=== PATIENT | male | born 1935 ===

== ENCOUNTER 2018-09-27 12:28 | Inpatient (IN) | payer OTHER ==
[2018-09-27 13:17] LABS: BASO # 0.1 K/uL (0.0-0.2); BASO % 0.8 % (0.0-2.0); EOS # 0.5 K/uL (0.0-0.7); HEMOGLOBIN 10.7 g/dL (12.0-18.0); LYMPH # 3.3 K/uL (1.0-4.3); LYMPH % 19.2 % (20.0-40.0); MEAN CELL VOLUME 88.2 fl (80.0-94.0); MEAN CORPUSCULAR HEMOGLOBIN 29.4 pg (27.0-31.0); MEAN CORPUSCULAR HGB CONC 33.3 g/dL (33.0-37.0); MEAN PLATELET VOLUME 7.1 fl (7.2-11.7); MONO # 1.7 K/uL (0.0-0.8); NEUT # 11.5 K/uL (1.8-7.0); RBC 3.62 Mil/uL (4.40-5.90); RED CELL DISTRIBUTION WIDTH 14.7 % (11.5-14.5); WHITE BLOOD COUNT 17.1 K/uL (4.8-10.8)
[2018-09-27 13:23] LABS: VENOUS BLOOD GAS BASE EXCESS 0.1 mmol/L (0.0-2.0); VENOUS BLOOD GAS PCO2 39 mmHg (40-60); VENOUS BLOOD GAS PO2 29 mm/Hg (30-55); VENOUS BLOOD PH 7.41 (7.32-7.43)
[2018-09-27 13:23] LABS: INR 1.1; PROTHROMBIN TIME 12.8 Seconds (9.8-13.1)
--- NOTE | 2018-09-27 13:25 | ED PDOC ---
HPI: CCC, URI, Sore Throat Time Seen by Provider: 09/27/18 12:53 Chief Complaint (Nursing): Cough, Cold, Congestion Chief Complaint (Provider): Cough History Per: Patient, Family (daughter), [employer] ([id number]) History/Exam Limitations: no limitations Onset/Duration Of Symptoms: Other (xmany years) Current Symptoms Are (Timing): Still Present Associated Symptoms: Sputum Additional Complaint(s): 83 year old male presents to the ED with daughter complaining of a cough with green sputum for many years which has been worsening. Patient recently came from [place]. Patient also complains of chest pain with cough and shortness of breath. Denies fever. PMD: none Past Medical History Reviewed: Historical Data, Nursing Documentation, Vital Signs Vital Signs: Last Vital Signs Temp 99 F 09/27/18 12:39 Pulse 104 H 09/27/18 12:39 Resp 25 H 09/27/18 12:39 BP 137/61 09/27/18 12:39 Pulse Ox 94 L 09/27/18 12:39 - Medical History PMH: Asthma, Diabetes, HTN, Hypercholesterolemia - Surgical History Surgical History: No Surg Hx - Family History Family History: States: Unknown Family Hx - Social History Current smoker - smoking cessation education provided: No Ex-Smoker (has not smoked in the last 12 months): Yes - Allergies Allergies/Adverse Reactions: Allergies Allergy/AdvReac Type Severity Reaction Status Date / Time No Known Allergies Allergy Verified 09/27/18 12:39 Review of Systems ROS Statement: Except As Marked, All Systems Reviewed And Found Negative Constitutional: Negative for: Fever Cardiovascular: Positive for: Chest Pain Respiratory: Positive for: Cough, Shortness of Breath, Sputum (green) Physical Exam - Reviewed Nursing Documentation Reviewed: Yes Vital Signs Reviewed: Yes - Physical Exam Appears: Positive for: Non-toxic, No Acute Distress Head Exam: Positive for: ATRAUMATIC, NORMOCEPHALIC Skin: Positive for: Normal Color, Warm, Dry Eye Exam: Positive for: Normal appearance Neck: Positive for: Normal, Painless ROM Cardiovascular/Chest: Positive for: Regular Rate, Rhythm Respiratory: Positive for: Crackles (bibasilar ). Negative for: Respiratory Distress Extremity: Positive for: Normal ROM Neurologic/Psych: Positive for: Alert, Other (speaking full sentences). Negative for: Motor/Sensory Deficits - Laboratory Results Result Diagrams: 09/27/18 13:10 09/27/18 13:10 - ECG Interpretation Of ECG: ST @ 105, TWI lateral leads (no old EKG to compare). O2 Sat by Pulse Oximetry: 94 (RA) Pulse Ox Interpretation: Normal Medical Decision Making Medical Decision Making: Initial Impression: Acute on chronic cough and chest pain Initial Plan: --VBG shock panel --ECG --ProBNP stat --CMP --Troponin stat --ED urine dipstick --CBC --PTT --Prothrombin time --Chest X-ray --Glucose stat --Blood culture --Urinalysis Accession No. : [id number] Patient Name / ID : KERA QURESHI / [id number] Exam Date : 09/27/2018 12:56:07 ( Approved ) Study Comment : Sex / Age : M / 83Y Creator : Jennifer Persaud MD Dictator : Jennifer Persaud MD [place]ner : Desizing Machine Operator Head End : Jennifer Persaud MD Approver2 : Report Date : 09/27/2018 13:25:31 My Comment : Date of service: 09/27/2018 HISTORY: Cough COMPARISON: No prior. FINDINGS: LUNGS: The lungs are well inflated. There is moderate pulmonary venous congestion. There is confluent airspace disease in the lower lobes. There is a calcified right hilar lymph node. PLEURA: No pleural effusions or pneumothorax. CARDIOVASCULAR: The heart is normal in size. Atherosclerotic aortic arch calcifications are present. OSSEOUS STRUCTURES: Within normal limits for the patient's age. VISUALIZED UPPER ABDOMEN: Normal. OTHER FINDINGS: None. IMPRESSION: Confluent airspace disease in the lower lobes could represent subsegmental atelectasis however superimposed pneumonia cannot be excluded. ------- Scribe Attestation: Documented by Francisco Reveles acting as a scribe for Roxy Sandoval MD. Provider Scribe Attestation: All medical record entries made by the Scribe were at my direction and personally dictated by me. I have reviewed the chart and agree that the record accurately reflects my personal performance of the history, physical exam, medical decision making, and the department course for this patient. I have also personally directed, reviewed, and agree with the discharge instructions and disposition. Disposition - Clinical Impression Clinical Impression: Pneumonia, Sepsis, Chest pain - Patient ED Disposition Is Patient to be Admitted: Yes - Disposition Disposition Time: 15:22 Condition: STABLE Forms: [employer] (Taiwanese) - Pt Status Changed To: Hospital Disposition Of: Inpatient - Admit Certification Admit to Inpatient:: After my assessment, the patient will require hospitalization for at least two midnights. This is because of the severity of symptoms shown, intensity of services needed, and/or the medical risk in this patient being treated as an outpatient. - POA Present On Arrival: None
[2018-09-27 13:26] LABS: PARTIAL THROMBOPLASTIN TIME 32.8 Seconds (25.6-37.1)
--- NOTE | 2018-09-27 13:29 | RAD ---
Date of service: 09/27/2018 HISTORY: Cough COMPARISON: No prior. FINDINGS: LUNGS: The lungs are well inflated. There is moderate pulmonary venous congestion. There is confluent airspace disease in the lower lobes. There is a calcified right hilar lymph node. PLEURA: No pleural effusions or pneumothorax. CARDIOVASCULAR: The heart is normal in size. Atherosclerotic aortic arch calcifications are present. OSSEOUS STRUCTURES: Within normal limits for the patient's age. VISUALIZED UPPER ABDOMEN: Normal. OTHER FINDINGS: None. IMPRESSION: Confluent airspace disease in the lower lobes could represent subsegmental atelectasis however superimposed pneumonia cannot be excluded.
[2018-09-27 13:34] LABS: ALB/GLOB RATIO 0.9 (1.0-2.1); ALBUMIN 3.9 g/dL (3.5-5.0); ALT/SGPT 18 U/L (21-72); AST/SGOT 33 U/L (17-59); BLOOD UREA NITROGEN 11 mg/dl (9-20); CALCIUM 9.7 mg/dL (8.4-10.2); GFR NON-AFRICAN AMERICAN > 60
[2018-09-27 13:41] LABS: B-TYPE NATRIURETIC PEPTIDE 677 pg/ml (0-900)
[2018-09-27] MEDS ORDERED: Azithromycin 500 MG in Sodium Chloride 0.9% 250 ML IV STA (13:50)
[2018-09-27] MEDS ORDERED: cefTRIAXone (Rocephin) 1 gm Inj ONE (14:02)
[2018-09-27 15:04] LABS: URINE BACTERIA RARE (<OCC); URINE BILIRUBIN NEGATIVE (NEGATIVE); URINE BLOOD NEGATIVE (NEGATIVE); URINE CLARITY SLIGHTY-CLOUDY (Clear); URINE COLOR YELLOW (YELLOW); URINE GLUCOSE (UA) NEG (NEGATIVE); URINE LEUKOCYTE ESTERASE NEG Leu/uL (Negative); URINE PROTEIN 100 mg/dL (NEGATIVE); URINE UROBILINOGEN 0.2-1.0 mg/dL (0.2-1.0)
[2018-09-27] MEDS ORDERED: Enoxaparin 60 mg Syringe SC STA (15:25)
[2018-09-27] MEDS ORDERED: Glucagon Recombinant 1 mg Inj IM PRN (17:56)
[2018-09-27] MEDS ORDERED: Dextrose 50% SYRINGE Inj (50 ml) IV PRN (17:56)
--- NOTE | 2018-09-27 18:56 | CARD ---
APPROVED REPORT Date of service: 09/27/2018 EKG Measurement Heart [id number] <Conclusion> Sinus tachycardia ST & T wave abnormality, consider lateral ischemia Abnormal ECG
[2018-09-27] MEDS ORDERED: Albuterol-Ipratrop 3 mg / 0.5 (3 ml) UD INH PRN (19:07)
[2018-09-27] MEDS ORDERED: [UNRECOGNIZED DRUG - OTHER] PO SCH (21:00)
[2018-09-28] MEDS ORDERED: Pneumococcal 23-Valent Vaccine IM ONE (06:00)
[2018-09-28 06:26] LABS: BASO # 0.1 K/uL (0.0-0.2); BASO % 1.1 % (0.0-2.0); EOS # 0.6 K/uL (0.0-0.7); EOS % 5.2 % (0.0-4.0); HEMOGLOBIN 9.4 g/dL (12.0-18.0); LYMPH # 2.5 K/uL (1.0-4.3); LYMPH % 22.5 % (20.0-40.0); MEAN CELL VOLUME 87.3 fl (80.0-94.0); MEAN CORPUSCULAR HEMOGLOBIN 28.9 pg (27.0-31.0); MEAN CORPUSCULAR HGB CONC 33.1 g/dL (33.0-37.0); MEAN PLATELET VOLUME 7.3 fl (7.2-11.7); MONO # 1.3 K/uL (0.0-0.8); MONO % 11.6 % (0.0-10.0); NEUT # 6.7 K/uL (1.8-7.0); NEUT % 59.6 % (50.0-75.0); RBC 3.27 Mil/uL (4.40-5.90); RED CELL DISTRIBUTION WIDTH 14.8 % (11.5-14.5); WHITE BLOOD COUNT 11.3 K/uL (4.8-10.8)
[2018-09-28 06:52] LABS: ALB/GLOB RATIO 0.9 (1.0-2.1); ALBUMIN 3.5 g/dL (3.5-5.0); ALT/SGPT 29 U/L (21-72); AST/SGOT 31 U/L (17-59); BLOOD UREA NITROGEN 12 mg/dl (9-20); CALCIUM 9.2 mg/dL (8.4-10.2); GFR NON-AFRICAN AMERICAN 58
[2018-09-28] MEDS ORDERED: Sodium Chloride 3% for Inhalation 4 ML VIAL.NEB IH PRN (08:38)
--- NOTE | 2018-09-28 08:42 | CP.PCM.HP ---
<Zohra Herrmann - Last Filed: 09/28/18 08:32> History of Present Illness - History of Present Illness History of Present Illness: 83 yo M with hx diabetes, asthma, hypertension, arthritis, admitted due to sepsis secondary to pneumonia. Pt presented to ED, brought by his daughter, who reports that he has been having progressively worsening cough for the past few months, worse yesterday, which prompted her to bring him in. Pt reports that he gets short of breath when he is coughing, and cough if productive of white- yellow sputum, without blood. He reports that he is unable to walk much without getting short of breath and coughing. Denies chest pain, fevers, chills. Except as above; 12 point ROS neg. PMD: Dr. 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 Denies heavy alcohol intake or drug use. Worked as [employer]. Fam hx: noncontributory NKDA Meds as per med rec In ED Afebrile; BP normotensive, tachycardic WBC 17k, Hgb 10.7 CXR: Confluent airspace disease in the lower lobes could represent subsegmental atelectasis however superimposed pneumonia cannot be excluded. proBNP [address] Feldman this am; reports continued cough; no acute events overnight. Present on Admission - Present on Admission Any Indicators Present on Admission: No Review of Systems - Review of Systems Review of Systems: as per hpi Past Patient History - Past Medical History & Family History Past Medical History?: Yes - Past Social History Smoking Status: Former Smoker - CARDIAC Hx Cardiac Disorders: Yes Hx Hypercholesterolemia: Yes Hx Hypertension: Yes - PULMONARY Hx Respiratory Disorders: Yes Hx Asthma: Yes - NEUROLOGICAL Hx Neurological Disorder: No - HEENT Hx HEENT Problems: No - RENAL Hx Chronic Kidney Disease: No - ENDOCRINE/METABOLIC Hx Endocrine Disorders: No - HEMATOLOGICAL/ONCOLOGICAL Hx Blood Disorders: No - INTEGUMENTARY Hx Dermatological Problems: No - MUSCULOSKELETAL/RHEUMATOLOGICAL Hx Musculoskeletal Disorders: No - GASTROINTESTINAL Hx Gastrointestinal Disorders: No - GENITOURINARY/GYNECOLOGICAL Hx Genitourinary Disorders: No - PSYCHIATRIC Hx Psychophysiologic Disorder: No Hx Substance Use: No - SURGICAL HISTORY Hx Surgeries: No - ANESTHESIA Hx Anesthesia: No Hx Anesthesia Reactions: No Hx Malignant Hyperthermia: No Has any member of the family had a problem w/ anesthesia?: No Meds Allergies/Adverse Reactions: Allergies Allergy/AdvReac Type Severity Reaction Status Date / Time No Known Allergies Allergy Verified 09/27/18 12:39 Physical Exam - Constitutional Appears: Non-toxic, No Acute Distress - Head Exam Head Exam: NORMAL INSPECTION - Eye Exam Eye Exam: Normal appearance, PERRL - ENT Exam ENT Exam: Mucous Membranes Moist - Respiratory Exam Respiratory Exam: NORMAL BREATHING PATTERN. absent: Accessory Muscle Use, Respiratory Distress Additional comments: bibasilar crackles good air movement bilaterally - Cardiovascular Exam Cardiovascular Exam: REGULAR RHYTHM, +S1, +S2 - GI/Abdominal Exam GI & Abdominal Exam: Normal Bowel Sounds, Soft. absent: Tenderness - Extremities Exam Extremities exam: Positive for: normal inspection. Negative for: calf tenderness - Neurological Exam Neurological exam: Alert Additional comments: oriented - Psychiatric Exam Psychiatric exam: Normal Affect, Normal Mood - Skin Skin Exam: Dry, Warm Results - Vital Signs Recent Vital Signs: Last Vital Signs Temp 98.3 F 09/28/18 08:15 Pulse 96 H 09/28/18 08:15 Resp 20 09/28/18 08:15 BP 140/54 L 09/28/18 08:15 Pulse Ox 98 09/28/18 08:15 - Labs Result Diagrams: 09/28/18 04:05 09/28/18 04:05 Labs: Laboratory Results - last 24 hr 09/27/18 09/27/18 09/27/18 13:07 13:10 13:10 WBC 17.1 H RBC 3.62 L Hgb 10.7 L Hct 32.0 L MCV 88.2 MCH 29.4 MCHC 33.3 RDW 14.7 H Plt Count 545 H MPV 7.1 L Neut % (Auto) 67.0 Lymph % (Auto) 19.2 L [place] % (Auto) 10.0 Eos % (Auto) 3.0 Baso % (Auto) 0.8 Neut # (Auto) 11.5 H Lymph # (Auto) 3.3 Calloway # (Auto) 1.7 H Eos # (Auto) 0.5 Baso # (Auto) 0.1 PT INR APTT pO2 29 L VBG pH 7.41 VBG pCO2 39 L VBG HCO3 24.1 VBG Total CO2 25.9 VBG O2 Sat (Calc) 56.9 VBG Base Excess 0.1 VBG Potassium 4.0 Sodium 134.0 136 Chloride 104.0 101 Glucose 206 H Lactate 1.4 FiO2 21.0 Potassium 4.2 Carbon Dioxide 22 Anion Gap 17 BUN 11 Creatinine 1.1 Est GFR ( Amer) > 60 Est GFR (Non-Af Amer) > 60 POC Glucose (mg/dL) Random Glucose 193 H Calcium 9.7 Total Bilirubin 0.3 AST 33 ALT 18 L Alkaline Phosphatase 88 Troponin I < 0.0120 NT-Pro-B Natriuret Pep 677 Total Protein 8.2 Albumin 3.9 Globulin 4.3 H Albumin/Globulin Ratio 0.9 L Venous Blood Potassium 4.0 Urine Color Urine Clarity Urine pH Ur Specific [place] Urine Protein Urine Glucose (UA) Urine Ketones Urine Blood Urine Nitrate Urine Bilirubin Urine Urobilinogen Ur Leukocyte Esterase Urine RBC (Auto) Urine Microscopic WBC Urine Bacteria Hyaline Casts 09/27/18 09/27/18 09/27/18 13:10 13:15 14:54 WBC RBC Hgb Hct MCV MCH MCHC RDW Plt Count MPV Neut % (Auto) Lymph % (Auto) [place] % (Auto) Eos % (Auto) Baso % (Auto) Neut # (Auto) Lymph # (Auto) [place] # (Auto) Eos # (Auto) Baso # (Auto) PT 12.8 INR 1.1 APTT 32.8 pO2 VBG pH VBG pCO2 VBG HCO3 VBG Total CO2 VBG O2 Sat (Calc) VBG Base Excess VBG Potassium Sodium Chloride Glucose Lactate FiO2 Potassium Carbon Dioxide Anion Gap BUN Creatinine Est GFR ( Amer) Est GFR (Non-Af Amer) POC Glucose (mg/dL) 206 H Random Glucose Calcium Total Bilirubin AST ALT Alkaline Phosphatase Troponin I NT-Pro-B Natriuret Pep Total Protein Albumin Globulin Albumin/Globulin Ratio Venous Blood Potassium Urine Color Yellow Urine Clarity Slighty-cloudy Urine pH 5.0 Ur Specific [place] 1.019 Urine Protein 100 Urine Glucose (UA) Neg Urine Ketones Negative Urine Blood Negative Urine Nitrate Negative Urine Bilirubin Negative Urine Urobilinogen 0.2-1.0 Ur Leukocyte Esterase Neg Urine RBC (Auto) 1 Urine Microscopic WBC 1 Urine Bacteria Rare Hyaline Casts 3-5 H 09/27/18 09/27/18 09/28/18 20:04 21:23 04:05 WBC 11.3 H RBC 3.27 L Hgb 9.4 L Hct 28.6 L MCV 87.3 MCH 28.9 MCHC 33.1 RDW 14.8 H Plt Count 510 H MPV 7.3 Neut % (Auto) 59.6 Lymph % (Auto) 22.5 Calloway % (Auto) 11.6 H Eos % (Auto) 5.2 H Baso % (Auto) 1.1 Neut # (Auto) 6.7 Lymph # (Auto) 2.5 Callow[place] # (Auto) 1.3 H Eos # (Auto) 0.6 Baso # (Auto) 0.1 PT INR APTT pO2 VBG pH VBG pCO2 VBG HCO3 VBG Total CO2 VBG O2 Sat (Calc) VBG Base Excess VBG Potassium Sodium Chloride Glucose Lactate FiO2 Potassium Carbon Dioxide Anion Gap BUN Creatinine Est GFR ( Amer) Est GFR (Non-Af Amer) POC Glucose (mg/dL) 173 H Random Glucose Calcium Total Bilirubin AST ALT Alkaline Phosphatase Troponin I < 0.0120 NT-Pro-B Natriuret Pep Total Protein Albumin Globulin Albumin/Globulin Ratio Venous Blood Potassium Urine Color Urine Clarity Urine pH Ur Specific [place] Urine Protein Urine Glucose (UA) Urine Ketones Urine Blood Urine Nitrate Urine Bilirubin Urine Urobilinogen Ur Leukocyte Esterase Urine RBC (Auto) Urine Microscopic WBC Urine Bacteria Hyaline Casts 09/28/18 09/28/18 04:05 05:21 WBC RBC Hgb Hct MCV MCH MCHC RDW Plt Count MPV Neut % (Auto) Lymph % (Auto) [place] % (Auto) Eos % (Auto) Baso % (Auto) Neut # (Auto) Lymph # (Auto) [place] # (Auto) Eos # (Auto) Baso # (Auto) PT INR APTT pO2 VBG pH VBG pCO2 VBG HCO3 VBG Total CO2 VBG O2 Sat (Calc) VBG Base Excess VBG Potassium Sodium 136 Chloride 102 Glucose Lactate FiO2 Potassium 3.9 Carbon Dioxide 23 Anion Gap 15 BUN 12 Creatinine 1.2 Est GFR ( Amer) > 60 Est GFR (Non-Af Amer) 58 POC Glucose (mg/dL) 115 H Random Glucose 118 H Calcium 9.2 Total Bilirubin 0.2 AST 31 ALT 29 Alkaline Phosphatase 76 Troponin I < 0.0120 NT-Pro-B Natriuret Pep Total Protein 7.4 Albumin 3.5 Globulin 3.9 Albumin/Globulin Ratio 0.9 L Venous Blood Potassium Urine Color Urine Clarity Urine pH Ur Specific [place] Urine Protein Urine Glucose (UA) Urine Ketones Urine Blood Urine Nitrate Urine Bilirubin Urine Urobilinogen Ur Leukocyte Esterase Urine RBC (Auto) Urine Microscopic WBC Urine Bacteria Hyaline Casts Assessment & Plan - Assessment and Plan (Free Text) Assessment: 83 yo M with asthma, diabetes, hypertension, admitted for sepsis secondary to suspected bacterial community acquired pneumonia. Plan: - Admitted to tele, continuous monitoring - Sepsis criteria met on admission (tachycardia, elevated WBC count, suspected source pneumonia seen on admission CXR) - WBC down to 11k from 17k; continue ceftriaxone and azithromycin - Sputum cultures, blood cultures - EKG with T wave inversions, ? lateral ischemia - cardiology consult- Dr. Olivares; no edema and probnp wnl. - Anenia workup - tibc, iron, ferritin, transferrin, Hgb 9-10 - Resume home meds for diabetes, asthma, resume metoprolol; hold lasix for now - Duonebs Q4hrs scheduled - Heart healthy/consistent carb diet - Lovenox SC <Damian Feldman K - Last Filed: 09/28/18 10:34> Results - Vital Signs Recent Vital Signs: Last Vital Signs Temp 98.3 F 09/28/18 08:15 Pulse 96 H 09/28/18 09:11 Resp 20 09/28/18 08:15 BP 150/54 L 09/28/18 09:11 Pulse Ox 98 09/28/18 08:15 - Labs Result Diagrams: 09/28/18 04:05 09/28/18 04:05 Labs: Laboratory Results - last 24 hr 09/27/18 09/27/18 09/27/18 13:07 13:10 13:10 WBC 17.1 H RBC 3.62 L Hgb 10.7 L Hct 32.0 L MCV 88.2 MCH 29.4 MCHC 33.3 RDW 14.7 H Plt Count 545 H MPV 7.1 L Neut % (Auto) 67.0 Lymph % (Auto) 19.2 L Callow[place] % (Auto) 10.0 Eos % (Auto) 3.0 Baso % (Auto) 0.8 Neut # (Auto) 11.5 H Lymph # (Auto) 3.3 [place] # (Auto) 1.7 H Eos # (Auto) 0.5 Baso # (Auto) 0.1 PT INR APTT pO2 29 L VBG pH 7.41 VBG pCO2 39 L VBG HCO3 24.1 VBG Total CO2 25.9 VBG O2 Sat (Calc) 56.9 VBG Base Excess 0.1 VBG Potassium 4.0 Sodium 134.0 136 Chloride 104.0 101 Glucose 206 H Lactate 1.4 FiO2 21.0 Potassium 4.2 Carbon Dioxide 22 Anion Gap 17 BUN 11 Creatinine 1.1 Est GFR ( Amer) > 60 Est GFR (Non-Af Amer) > 60 POC Glucose (mg/dL) Random Glucose 193 H Calcium 9.7 Total Bilirubin 0.3 AST 33 ALT 18 L Alkaline Phosphatase 88 Troponin I < 0.0120 NT-Pro-B Natriuret Pep 677 Total Protein 8.2 Albumin 3.9 Globulin 4.3 H Albumin/Globulin Ratio 0.9 L Venous Blood Potassium 4.0 Urine Color Urine Clarity Urine pH Ur Specific [place] Urine Protein Urine Glucose (UA) Urine Ketones Urine Blood Urine Nitrate Urine Bilirubin Urine Urobilinogen Ur Leukocyte Esterase Urine RBC (Auto) Urine Microscopic WBC Urine Bacteria Hyaline Casts 09/27/18 09/27/18 09/27/18 13:10 13:15 14:54 WBC RBC Hgb Hct MCV MCH MCHC RDW Plt Count MPV Neut % (Auto) Lymph % (Auto) [place] % (Auto) Eos % (Auto) Baso % (Auto) Neut # (Auto) Lymph # (Auto) [place] # (Auto) Eos # (Auto) Baso # (Auto) PT 12.8 INR 1.1 APTT 32.8 pO2 VBG pH VBG pCO2 VBG HCO3 VBG Total CO2 VBG O2 Sat (Calc) VBG Base Excess VBG Potassium Sodium Chloride Glucose Lactate FiO2 Potassium Carbon Dioxide Anion Gap BUN Creatinine Est GFR ( Amer) Est GFR (Non-Af Amer) POC Glucose (mg/dL) 206 H Random Glucose Calcium Total Bilirubin AST ALT Alkaline Phosphatase Troponin I NT-Pro-B Natriuret Pep Total Protein Albumin Globulin Albumin/Globulin Ratio Venous Blood Potassium Urine Color Yellow Urine Clarity Slighty-cloudy Urine pH 5.0 Ur Specific [place] 1.019 Urine Protein 100 Urine Glucose (UA) Neg Urine Ketones Negative Urine Blood Negative Urine Nitrate Negative Urine Bilirubin Negative Urine Urobilinogen 0.2-1.0 Ur Leukocyte Esterase Neg Urine RBC (Auto) 1 Urine Microscopic WBC 1 Urine Bacteria Rare Hyaline Casts 3-5 H 09/27/18 09/27/18 09/28/18 20:04 21:23 04:05 WBC 11.3 H RBC 3.27 L Hgb 9.4 L Hct 28.6 L MCV 87.3 MCH 28.9 MCHC 33.1 RDW 14.8 H Plt Count 510 H MPV 7.3 Neut % (Auto) 59.6 Lymph % (Auto) 22.5 [place]allow[place] % (Auto) 11.6 H Eos % (Auto) 5.2 H Baso % (Auto) 1.1 Neut # (Auto) 6.7 Lymph # (Auto) 2.5 [place] # (Auto) 1.3 H Eos # (Auto) 0.6 Baso # (Auto) 0.1 PT INR APTT pO2 VBG pH VBG pCO2 VBG HCO3 VBG Total CO2 VBG O2 Sat (Calc) VBG Base Excess VBG Potassium Sodium Chloride Glucose Lactate FiO2 Potassium Carbon Dioxide Anion Gap BUN Creatinine Est GFR ( Amer) Est GFR (Non-Af Amer) POC Glucose (mg/dL) 173 H Random Glucose Calcium Total Bilirubin AST ALT Alkaline Phosphatase Troponin I < 0.0120 NT-Pro-B Natriuret Pep Total Protein Albumin Globulin Albumin/Globulin Ratio Venous Blood Potassium Urine Color Urine Clarity Urine pH Ur Specific [place] Urine Protein Urine Glucose (UA) Urine Ketones Urine Blood Urine Nitrate Urine Bilirubin Urine Urobilinogen Ur Leukocyte Esterase Urine RBC (Auto) Urine Microscopic WBC Urine Bacteria Hyaline Casts 09/28/18 09/28/18 04:05 05:21 WBC RBC Hgb Hct MCV MCH MCHC RDW Plt Count MPV Neut % (Auto) Lymph % (Auto) [place] % (Auto) Eos % (Auto) Baso % (Auto) Neut # (Auto) Lymph # (Auto) [place] # (Auto) Eos # (Auto) Baso # (Auto) PT INR APTT pO2 VBG pH VBG pCO2 VBG HCO3 VBG Total CO2 VBG O2 Sat (Calc) VBG Base Excess VBG Potassium Sodium 136 Chloride 102 Glucose Lactate FiO2 Potassium 3.9 Carbon Dioxide 23 Anion Gap 15 BUN 12 Creatinine 1.2 Est GFR ( Amer) > 60 Est GFR (Non-Af Amer) 58 POC Glucose (mg/dL) 115 H Random Glucose 118 H Calcium 9.2 Total Bilirubin 0.2 AST 31 ALT 29 Alkaline Phosphatase 76 Troponin I < 0.0120 NT-Pro-B Natriuret Pep Total Protein 7.4 Albumin 3.5 Globulin 3.9 Albumin/Globulin Ratio 0.9 L Venous Blood Potassium Urine Color Urine Clarity Urine pH Ur Specific [place] Urine Protein Urine Glucose (UA) Urine Ketones Urine Blood Urine Nitrate Urine Bilirubin Urine Urobilinogen Ur Leukocyte Esterase Urine RBC (Auto) Urine Microscopic WBC Urine Bacteria Hyaline Casts Assessment & Plan - Assessment and Plan (Free Text) Assessment: Patient was personally seen and examined by me in rounds with residents. Available labs and diagnostic data reviewed. Case, Patient's condition and management plan discussed with residents in rounds. Agree with resident's progress note. Plan: As ordered.
[2018-09-28] MEDS ORDERED: Patient's Own Med (Multivitamin [Multi-Vitamin Daily] 1 TAB) PO SCH (09:00)
[2018-09-28] MEDS: Insulin Lispro (humaLOG) 100 Units/ml Inj SC SCH ×3 (09:05→17:30)
[2018-09-28] MEDS: Enoxaparin 40 mg Syringe SC SCH (09:07)
[2018-09-28] MEDS: Multivitamin With Minerals Tab PO SCH (09:07)
[2018-09-28] MEDS: Azithromycin 500 MG in Sodium Chloride 0.9% 250 ML IVPB SCH (09:12)
[2018-09-28 11:12] LABS: TOTAL IRON BINDING CAPACITY 217 ug/dL (250-450)
[2018-09-28 11:50] LABS: IRON 27 ug/dL (49-181)
[2018-09-28 11:51] LABS: % IRON SATURATION 12 % (20-55)
--- NOTE | 2018-09-28 15:38 | CP.PCM.CON ---
History of Present Illness - History of Present Illness History of Present Illness: Consultation for evaluation of chest pain and abnormal EKG / lateral ST depressions HPI: Mr. Callahan is a 83-year-old male past medical history significant for hypertension diabetes who was admitted with complaints of shortness of breath and cough patient apparently was diagnosed a few weeks ago with URI symptoms and was given a dose of antibiotics which did not resolve his symptoms according to the patient's daughter at the bedside he is been having ongoing dyspnea on exertion for a few months prior to this presentation a week before this presentation his cough got worse accompanied with the sputum productive of yellow colored sputum accompanied with mild fevers and chills. He does have severe fatigue and lethargy with minimal activity has for [id number] history of smoking quit about 40 years ago no alcohol or illicit drug use. Review of Systems - Review of Systems Systems not reviewed;Unavailable: Acuity of Condition - Constitutional Constitutional: As Per HPI - EENT Eyes: As Per HPI Ears: As Per HPI Nose/Mouth/Throat: As Per HPI - Cardiovascular Cardiovascular: As Per HPI - Respiratory Respiratory: As Per HPI - Gastrointestinal Gastrointestinal: As Per HPI - Genitourinary Genitourinary: As Per HPI - Reproductive: Male Reproductive:Male: As Per HPI - Musculoskeletal Musculoskeletal: As Per HPI - Integumentary Integumentary: As Per HPI - Neurological Neurological: As Per HPI - Psychiatric Psychiatric: As Per HPI - Endocrine Endocrine: As Per HPI - Hematologic/Lymphatic Hematologic: As Per HPI Past Patient History - Past Medical History & Family History Past Medical History?: Yes - Past Social History Smoking Status: Former Smoker - CARDIAC Hx Cardiac Disorders: Yes Hx Hypercholesterolemia: Yes Hx Hypertension: Yes - PULMONARY Hx Respiratory Disorders: Yes Hx Asthma: Yes - NEUROLOGICAL Hx Neurological Disorder: No - HEENT Hx HEENT Problems: No - RENAL Hx Chronic Kidney Disease: No - ENDOCRINE/METABOLIC Hx Endocrine Disorders: No - HEMATOLOGICAL/ONCOLOGICAL Hx Blood Disorders: No - INTEGUMENTARY Hx Dermatological Problems: No - MUSCULOSKELETAL/RHEUMATOLOGICAL Hx Musculoskeletal Disorders: No - GASTROINTESTINAL Hx Gastrointestinal Disorders: No - GENITOURINARY/GYNECOLOGICAL Hx Genitourinary Disorders: No - PSYCHIATRIC Hx Psychophysiologic Disorder: No Hx Substance Use: No - SURGICAL HISTORY Hx Surgeries: No - ANESTHESIA Hx Anesthesia: No Hx Anesthesia Reactions: No Hx Malignant Hyperthermia: No Has any member of the family had a problem w/ anesthesia?: No Meds Allergies/Adverse Reactions: Allergies Allergy/AdvReac Type Severity Reaction Status Date / Time No Known Allergies Allergy Verified 09/27/18 12:39 - Medications Medications: Current Medications Albuterol/Ipratropium (Duoneb 3 Mg/0.5 Mg (3 Ml) Ud) 3 ml INH RQ4 PRN PRN Reason: Shortness of Breath Amlodipine Besylate (Norvasc) 5 mg PO DAILY [facility] Last Admin: 09/28/18 09:06 Dose: 5 mg Clopidogrel Bisulfate (Plavix) 75 mg PO DAILY [facility] Last Admin: 09/28/18 09:06 Dose: 75 mg Dextrose (Dextrose 50% Inj) 0 ml IV STAT PRN; Protocol PRN Reason: Hypoglycemia Protocol Dextrose (Glutose 15) 0 gm PO ONCE PRN; Protocol PRN Reason: Hypoglycemia Protocol Enoxaparin Sodium (Lovenox) 40 mg SC DAILY [facility]; Protocol Last Admin: 09/28/18 09:07 Dose: 40 mg Famotidine (Pepcid) 20 mg PO BID [facility] Last Admin: 09/28/18 09:06 Dose: 20 mg Glucagon (Glucagen Diagnostic Kit) 0 mg IM STAT PRN; Protocol PRN Reason: Hypoglycemia Protocol Home Med (Diprophylline (Neufil)) 250 mg PO Q12 [facility] Ceftriaxone Sodium 1 gm/ (Sodium Chloride) 100 mls @ 100 mls/hr IVPB DAILY [facility]; Protocol Last Admin: 09/28/18 09:08 Dose: 100 mls/hr Azithromycin 500 mg/ Sodium (Chloride) 250 mls @ 250 mls/hr IVPB DAILY [facility]; Protocol Last Admin: 09/28/18 09:12 Dose: 250 mls/hr Insulin Human Lispro (Humalog) 0 units SC ACTID [facility]; Protocol Last Admin: 09/28/18 12:42 Dose: Not Given Lactic Acid (Lac-Hydrin 12% Lotion (225 G)) 1 applic TOP TID [facility] Metformin HCl (Glucophage) 500 mg PO DAILY [facility] Last Admin: 09/28/18 09:05 Dose: 500 mg Metoprolol Tartrate (Lopressor) 50 mg PO Q12 [facility] Last Admin: 09/28/18 09:11 Dose: 50 mg Multivitamins/Minerals (Therapeutic-M Tab) 1 tab PO DAILY [facility] Last Admin: 09/28/18 09:07 Dose: 1 tab Physical Exam - Constitutional Appears: Well - Head Exam Head Exam: ATRAUMATIC, NORMAL INSPECTION, NORMOCEPHALIC - Eye Exam Eye Exam: EOMI, Normal appearance, PERRL Pupil Exam: NORMAL ACCOMODATION, PERRL - ENT Exam ENT Exam: Mucous Membranes Moist, Normal Exam - Neck Exam Neck exam: Positive for: Normal Inspection - Respiratory Exam Respiratory Exam: Clear to Auscultation Bilateral, NORMAL BREATHING PATTERN - Cardiovascular Exam Cardiovascular Exam: REGULAR RHYTHM, Systolic Murmur - GI/Abdominal Exam GI & Abdominal Exam: Normal Bowel Sounds, Soft. absent: Tenderness - Extremities Exam Extremities exam: Positive for: normal inspection - Back Exam Back exam: NORMAL INSPECTION - Neurological Exam Neurological exam: Alert, CN II-XII Intact, Normal Gait, Oriented x3, Reflexes Normal - Psychiatric Exam Psychiatric exam: Normal Affect, Normal Mood - Skin Skin Exam: Dry, Intact, Normal Color, Warm Results - Vital Signs Recent Vital Signs: Last Vital Signs Temp 97.9 F 09/28/18 12:22 Pulse 68 09/28/18 12:22 Resp 20 09/28/18 12:22 BP 114/71 09/28/18 12:22 Pulse Ox 97 09/28/18 12:22 - Labs Result Diagrams: 09/30/18 04:45 09/30/18 04:45 Labs: Laboratory Results - last 24 hr 09/27/18 09/27/18 09/28/18 20:04 21:23 04:05 WBC 11.3 H RBC 3.27 L Hgb 9.4 L Hct 28.6 L MCV 87.3 MCH 28.9 MCHC 33.1 RDW 14.8 H Plt Count 510 H MPV 7.3 Neut % (Auto) 59.6 Lymph % (Auto) 22.5 [place] % (Auto) 11.6 H Eos % (Auto) 5.2 H Baso % (Auto) 1.1 Neut # (Auto) 6.7 Lymph # (Auto) 2.5 [place] # (Auto) 1.3 H Eos # (Auto) 0.6 Baso # (Auto) 0.1 Sodium Potassium Chloride Carbon Dioxide Anion Gap BUN Creatinine Est GFR ( Amer) Est GFR (Non-Af Amer) POC Glucose (mg/dL) 173 H Random Glucose Calcium Iron TIBC % Saturation Ferritin Total Bilirubin AST ALT Alkaline Phosphatase Troponin I < 0.0120 Total Protein Albumin Globulin Albumin/Globulin Ratio 09/28/18 09/28/18 09/28/18 04:05 05:21 09:43 WBC RBC Hgb Hct MCV MCH MCHC RDW Plt Count MPV Neut % (Auto) Lymph % (Auto) [place] % (Auto) Eos % (Auto) Baso % (Auto) Neut # (Auto) Lymph # (Auto) [place] # (Auto) Eos # (Auto) Baso # (Auto) Sodium 136 Potassium 3.9 Chloride 102 Carbon Dioxide 23 Anion Gap 15 BUN 12 Creatinine 1.2 Est GFR ( Amer) > 60 Est GFR (Non-Af Amer) 58 POC Glucose (mg/dL) 115 H Random Glucose 118 H Calcium 9.2 Iron 27 L TIBC 217 L % Saturation 12 L Ferritin Total Bilirubin 0.2 AST 31 ALT 29 Alkaline Phosphatase 76 Troponin I < 0.0120 Total Protein 7.4 Albumin 3.5 Globulin 3.9 Albumin/Globulin Ratio 0.9 L 09/28/18 09/28/18 09:43 11:13 WBC RBC Hgb Hct MCV MCH MCHC RDW Plt Count MPV Neut % (Auto) Lymph % (Auto) [place] % (Auto) Eos % (Auto) Baso % (Auto) Neut # (Auto) Lymph # (Auto) [place] # (Auto) Eos # (Auto) Baso # (Auto) Sodium Potassium Chloride Carbon Dioxide Anion Gap BUN Creatinine Est GFR ( Amer) Est GFR (Non-Af Amer) POC Glucose (mg/dL) 134 H Random Glucose Calcium Iron TIBC % Saturation Ferritin 169.0 Total Bilirubin AST ALT Alkaline Phosphatase Troponin I Total Protein Albumin Globulin Albumin/Globulin Ratio Assessment & Plan (1) Abnormal EKG Assessment and Plan: Lateral ST depressions will need ischemic evaluation once respiratory status back to baseline Status: Acute (2) HTN (hypertension) Assessment and Plan: cont norvasc and bb add arb Status: Acute (3) Dyslipidemia Assessment and Plan: add statins Status: Acute (4) Chest pain Status: Acute (5) Pneumonia Status: Acute
[2018-09-29 05:53] LABS: HEMOGLOBIN 9.5 g/dL (12.0-18.0); MEAN CELL VOLUME 86.7 fl (80.0-94.0); MEAN CORPUSCULAR HEMOGLOBIN 29.5 pg (27.0-31.0); RBC 3.21 Mil/uL (4.40-5.90); RED CELL DISTRIBUTION WIDTH 14.5 % (11.5-14.5); WHITE BLOOD COUNT 11.4 K/uL (4.8-10.8)
[2018-09-29 06:18] LABS: ALB/GLOB RATIO 0.9 (1.0-2.1); ALBUMIN 3.4 g/dL (3.5-5.0); ALT/SGPT 32 U/L (21-72); AST/SGOT 53 U/L (17-59); BLOOD UREA NITROGEN 12 mg/dl (9-20); CALCIUM 9.2 mg/dL (8.4-10.2); GFR NON-AFRICAN AMERICAN > 60
[2018-09-29] MEDS: Enoxaparin 40 mg Syringe SC SCH (08:45)
[2018-09-29] MEDS: Insulin Lispro (humaLOG) 100 Units/ml Inj SC SCH ×3 (08:46→16:36)
[2018-09-29] MEDS: Multivitamin With Minerals Tab PO SCH (08:47)
[2018-09-29] MEDS: Azithromycin 500 MG in Sodium Chloride 0.9% 250 ML IVPB SCH (08:50)
--- NOTE | 2018-09-29 09:48 | CP.PCM.PN ---
<Zohra Herrmann - Last Filed: 09/29/18 09:56> Subjective - Date & Time of Evaluation Date of Evaluation: 09/29/18 Time of Evaluation: 07:35 - Subjective Subjective: Pt seen with Dr. Feldman this am; no acute events overnight. Cough sounds improving; continues to receive antibiotics. Pt complained of dry skin on lower ext - lachydrin cream started. For chest CT today. Objective - Vital Signs/Intake and Output Vital Signs (last 24 hours): Temp Pulse Resp BP Pulse Ox 98.0 F 88 20 127/59 L 97 09/29/18 08:18 09/29/18 08:46 09/29/18 08:18 09/29/18 08:46 09/29/18 08:18 - Medications Medications: Current Medications Albuterol/Ipratropium (Duoneb 3 Mg/0.5 Mg (3 Ml) Ud) 3 ml INH RQ4 PRN PRN Reason: Shortness of Breath Amlodipine Besylate (Norvasc) 5 mg PO DAILY [facility] Last Admin: 09/28/18 09:06 Dose: 5 mg Clopidogrel Bisulfate (Plavix) 75 mg PO DAILY [facility] Last Admin: 09/29/18 08:45 Dose: 75 mg Dextrose (Dextrose 50% Inj) 0 ml IV STAT PRN; Protocol PRN Reason: Hypoglycemia Protocol Dextrose (Glutose 15) 0 gm PO ONCE PRN; Protocol PRN Reason: Hypoglycemia Protocol Enoxaparin Sodium (Lovenox) 40 mg SC DAILY [facility]; Protocol Last Admin: 09/29/18 08:45 Dose: 40 mg Famotidine (Pepcid) 20 mg PO BID [facility] Last Admin: 09/29/18 08:45 Dose: 20 mg Glucagon (Glucagen Diagnostic Kit) 0 mg IM STAT PRN; Protocol PRN Reason: Hypoglycemia Protocol Ceftriaxone Sodium 1 gm/ (Sodium Chloride) 100 mls @ 100 mls/hr IVPB DAILY [facility]; Protocol Last Admin: 09/29/18 08:47 Dose: 100 mls/hr Azithromycin 500 mg/ Sodium (Chloride) 250 mls @ 250 mls/hr IVPB DAILY [facility]; Protocol Last Admin: 09/29/18 08:50 Dose: 250 mls/hr Insulin Human Lispro (Humalog) 0 units SC ACTID [facility]; Protocol Last Admin: 09/29/18 08:46 Dose: Not Given Lactic Acid (Lac-Hydrin 12% Lotion (225 G)) 1 applic TOP TID [facility] Last Admin: 09/29/18 08:46 Dose: 1 applic Metformin HCl (Glucophage) 500 mg PO DAILY [facility] Last Admin: 09/29/18 08:47 Dose: 500 mg Metoprolol Tartrate (Lopressor) 50 mg PO Q12 [facility] Last Admin: 09/29/18 08:46 Dose: 50 mg Multivitamins/Minerals (Therapeutic-M Tab) 1 tab PO DAILY [facility] Last Admin: 09/29/18 08:47 Dose: 1 tab - Labs Labs: 09/29/18 05:10 09/29/18 05:10 PT 12.8 Seconds (9.8-13.1) 09/27/18 13:10 INR 1.1 09/27/18 13:10 APTT 32.8 Seconds (25.6-37.1) 09/27/18 13:10 - Constitutional Appears: No Acute Distress - Eye Exam Eye Exam: Normal appearance - Neck Exam Neck Exam: Full ROM - Respiratory Exam Respiratory Exam: NORMAL BREATHING PATTERN. absent: Respiratory Distress Additional comments: coarse breath sounds bilaterally; improving - Cardiovascular Exam Cardiovascular Exam: REGULAR RHYTHM - GI/Abdominal Exam GI & Abdominal Exam: Soft. absent: Tenderness - Extremities Exam Extremities Exam: Normal Inspection. absent: Calf Tenderness - Neurological Exam Neurological Exam: Alert - Skin Skin Exam: Dry, Warm Assessment and Plan - Assessment and Plan (Free Text) Assessment: 83 yo M with asthma, diabetes, hypertension, admitted for sepsis secondary to suspected bacterial community acquired pneumonia. Plan: - Admitted to [facility], continuous monitoring - Sepsis criteria met on admission (tachycardia, elevated WBC count, suspected source pneumonia seen on admission CXR); resolved - WBC down to 11k from 17k, unchanged from yesterday; continue ceftriaxone and azithromycin - Sputum cultures, blood cultures pending - Chest CT pending for today - EKG with T wave inversions, ? lateral ischemia - cardiology consult- Dr. Olivares; no edema and probnp wnl. - Anenia -unknown etiology; iron studies normal and MCV wnl - Resume home meds for diabetes, asthma, resume metoprolol; hold lasix for now - Duonebs Q4hrs scheduled - Heart healthy/consistent carb diet - Lovenox SC <Feldman,Damian K - Last Filed: 09/30/18 14:23> Objective - Vital Signs/Intake and Output Vital Signs (last 24 hours): Temp Pulse Resp BP Pulse Ox 98 F 65 20 132/75 98 09/30/18 12:22 09/30/18 12:22 09/30/18 12:22 09/30/18 12:22 09/30/18 12:22 - Medications Medications: Current Medications Albuterol/Ipratropium (Duoneb 3 Mg/0.5 Mg (3 Ml) Ud) 3 ml INH RQ4 PRN PRN Reason: Shortness of Breath Amlodipine Besylate (Norvasc) 5 mg PO DAILY [facility] Last Admin: 09/30/18 09:40 Dose: 5 mg Clopidogrel Bisulfate (Plavix) 75 mg PO DAILY [facility] Last Admin: 09/30/18 09:40 Dose: 75 mg Dextrose (Dextrose 50% Inj) 0 ml IV STAT PRN; Protocol PRN Reason: Hypoglycemia Protocol Dextrose (Glutose 15) 0 gm PO ONCE PRN; Protocol PRN Reason: Hypoglycemia Protocol Enoxaparin Sodium (Lovenox) 40 mg SC DAILY [facility]; Protocol Last Admin: 09/30/18 09:40 Dose: 40 mg Famotidine (Pepcid) 20 mg PO BID [facility] Last Admin: 09/30/18 09:39 Dose: 20 mg Glucagon (Glucagen Diagnostic Kit) 0 mg IM STAT PRN; Protocol PRN Reason: Hypoglycemia Protocol Ceftriaxone Sodium 1 gm/ (Sodium Chloride) 100 mls @ 100 mls/hr IVPB DAILY [facility]; Protocol Last Admin: 09/30/18 09:41 Dose: 100 mls/hr Azithromycin 500 mg/ Sodium (Chloride) 250 mls @ 250 mls/hr IVPB DAILY [facility]; Protocol Last Admin: 09/30/18 09:42 Dose: 250 mls/hr Insulin Human Lispro (Humalog) 0 units SC ACTID [facility]; Protocol Last Admin: 09/30/18 07:59 Dose: Not Given Lactic Acid (Lac-Hydrin 12% Lotion (225 G)) 1 applic TOP TID [facility] Last Admin: 09/30/18 09:40 Dose: 1 applic Metformin HCl (Glucophage) 500 mg PO DAILY [facility] Last Admin: 09/30/18 09:50 Dose: 500 mg Metoprolol Tartrate (Lopressor) 50 mg PO Q12 [facility] Last Admin: 09/30/18 09:39 Dose: 50 mg Multivitamins/Minerals (Therapeutic-M Tab) 1 tab PO DAILY [facility] Last Admin: 09/30/18 09:39 Dose: 1 tab - Labs Labs: 09/30/18 04:45 09/30/18 04:45 PT 12.8 Seconds (9.8-13.1) 09/27/18 13:10 INR 1.1 09/27/18 13:10 APTT 32.8 Seconds (25.6-37.1) 09/27/18 13:10 Assessment and Plan - Assessment and Plan (Free Text) Plan: Patient was personally seen and examined by me in rounds with residents. Available labs and diagnostic data reviewed. Case, Patient's condition and management plan discussed with residents in rounds. Agree with resident's progress note. Plan: As ordered.
--- NOTE | 2018-09-29 12:39 | CT ---
Date of service: 09/29/2018 PROCEDURE: CT Chest without contrast HISTORY: pna/ sob COMPARISON: None available. TECHNIQUE: Contiguous axial images were obtained through the chest without intravenous contrast enhancement. Sagittal and coronal reconstructions were performed. Radiation dose (DLP): 246.73 mGy-cm. This CT exam was performed using one or more of the following dose reduction techniques: Automated exposure control, adjustment of the mA and/or kV according to patient size, and/or use of iterative reconstruction technique. FINDINGS: LUNGS: Possible mild pulmonary infiltrate in the superior segment left lower lobe. No other infiltrate seen elsewhere. There is mild cylindrical bronchiectasis in both lower lobes, left greater than right. There is mucous plugging in the left lower lobe. There is nodular pleural thickening seen in the superior segment right lower lobe. There is a pleural-based nodule, 11 mm in diameter, along the posterior aspect of the superior segment, right lower lobe. Nodular pleural thickening is seen adjacent to this. Further evaluation advised with percutaneous biopsy or PET-CT to exclude neoplasm. There is a calcified granuloma in the right upper lobe, anterior segment. No other pulmonary mass is identified. MEDIASTINUM: No evidence of thoracic aortic aneurysm. Mild cardiomegaly. Coronary arterial calcification. Main pulmonary artery unremarkable. No vascular congestion. No mediastinal lymphadenopathy seen. Evaluation of the hilar structures is limited in the absence of intravenous contrast administration. Possible right hilar lymphadenopathy. There is atherosclerotic calcification of the thoracic aorta. PLEURA: No pleural fluid. No pneumothorax. BONES: No fracture. No destructive lesion. UPPER ABDOMEN: Calcified splenic granuloma incidentally noted. Nonobstructing 4 mm mid left renal calculus. OTHER FINDINGS: Mild bilateral gynecomastia. IMPRESSION: Bilateral lower lobe cylindrical bronchiectasis, left greater than right. Mucous plugging in left lower lobe. Mild pulmonary infiltrate suspected in superior segment left lower lobe. 11 mm pleural-based nodule posterior aspect of the superior segment right lower lobe. Nodular pleural thickening is seen adjacent to this. Questionable right hilar lymphadenopathy. Evaluation with percutaneous biopsy or PET-CT is suggested in consideration of possible pulmonary neoplasm.
--- NOTE | 2018-09-29 23:30 | CARD ---
APPROVED REPORT Date of service: 09/29/2018 EXAM: Two-dimensional and M-mode echocardiogram with Doppler and color Doppler. Other Information Quality : GoodRhythm : NSR INDICATION Cardiac Disease: CAD 2D DIMENSIONS IVSd1.41 (0.7-1.1cm)LVDd4.01 (3.9-5.9cm) LVOT Diameter1.72 (1.8-2.4cm)PWd1.10 (0.7-1.1cm) IVSs1.50 (0.8-1.2cm)LVDs2.73 (2.5-4.0cm) FS (%) 32.0 %PWs1.36 (0.8-1.2cm) M-Mode DIMENSIONS Left Atrium (MM)4.06 (2.5-4.0cm)IVSd1.03 (0.7-1.1cm) Aortic Root2.79 (2.2-3.7cm)LVDd4.79 (4.0-5.6cm) Aortic Cusp Exc.1.68 (1.5-2.0cm)PWd0.91 (0.7-1.1cm) IVSs1.47 cmFS (%) 35 % LVDs3.12 (2.0-3.8cm)PWs1.18 cm Aortic Valve AoV Peak Zmxrcybo825.3cm/sAoV VTI32.7cmAO Peak GR.15mmHg LVOT Peak Gpydftbn99.8cm/sLVOT VTI18.23cmAO Mean GR.8mmHg MATEO (VMAX)0.18sr0RZH (VTI)0.05fk5CA P 1/2 [id number] Mitral Valve MV E Cuxkyjef90.5cm/sMV DECEL GUYM969lbVR A Foaxyqpe38.4cm/s MV WDD60tsS/A ratio0.6MVA (PHT)3.47cm2 TDI Lateral E' Peak V5.13cm/sMedial E' Peak V5.38cm/sE/Lateral E'8.5 E/Medial E'8.1 Pulmonary Valve PV Peak Wumyysbh24.1cm/s Tricuspid Valve TR Peak Cwczrcib733gt/sRAP ONKFZEJZ27acQtSD Peak Gr.29mmHg [id number] LEFT VENTRICLE The left ventricle is normal size. There is borderline to mild concentric left ventricular hypertrophy. The left ventricular systolic function is normal. The estimated ejection fraction is 55-60% No regional wall motion abnormalities noted.. Transmitral Doppler flow pattern is Grade I-abnormal relaxation pattern. No left ventricle thrombus noted on this study. There is no ventricular septal defect visualized. There is no left ventricular aneurysm. There is no mass noted in the left ventricle. RIGHT VENTRICLE The right ventricle is normal size. There is normal right ventricular wall thickness. The right ventricular systolic function is normal. ATRIA The left atrium is mildly dilated. The right atrium size is normal. The interatrial septum is intact with no evidence for an atrial septal defect. AORTIC VALVE The aortic valve is normal in structure. Mild to moderate aortic regurgitation is present. There is no aortic valvular stenosis. There is no aortic valvular vegetation. MITRAL VALVE The mitral valve is normal in structure. There is no evidence of mitral valve prolapse. There is no mitral valve stenosis. There is no mitral valve regurgitation noted. TRICUSPID VALVE The tricuspid valve is normal in structure. There is mild tricuspid valve regurgitation noted. RVSP is calculated at 35 mm Hg. There is no tricuspid valve prolapse or vegetation. There is no tricuspid valve stenosis. PULMONIC VALVE The pulmonary valve is normal in structure. There is no pulmonic valvular regurgitation. There is no pulmonic valvular stenosis. GREAT VESSELS The aortic root is normal in size. The ascending aorta is normal in size. The pulmonary artery is normal. The IVC is normal in size and collapses >50% with inspiration. PERICARDIAL EFFUSION There is no pericardial effusion. There is no pleural effusion. <Conclusion> There is borderline to mild concentric left ventricular hypertrophy. The estimated ejection fraction is 55-60% Transmitral Doppler flow pattern is Grade I-abnormal relaxation pattern. The left atrium is mildly dilated. Mild to moderate aortic regurgitation is present. There is mild tricuspid valve regurgitation noted. RVSP is calculated at 35 mm Hg.
[2018-09-30 06:10] LABS: HEMOGLOBIN 9.6 g/dL (12.0-18.0); MEAN CELL VOLUME 86.7 fl (80.0-94.0); MEAN CORPUSCULAR HEMOGLOBIN 29.6 pg (27.0-31.0); MEAN CORPUSCULAR HGB CONC 34.2 g/dL (33.0-37.0); RBC 3.24 Mil/uL (4.40-5.90); RED CELL DISTRIBUTION WIDTH 14.5 % (11.5-14.5); WHITE BLOOD COUNT 12.9 K/uL (4.8-10.8)
[2018-09-30 06:30] LABS: ALB/GLOB RATIO 0.9 (1.0-2.1); ALBUMIN 3.4 g/dL (3.5-5.0); ALT/SGPT 28 U/L (21-72); AST/SGOT 49 U/L (17-59); BLOOD UREA NITROGEN 12 mg/dl (9-20); CALCIUM 9.3 mg/dL (8.4-10.2); GFR NON-AFRICAN AMERICAN > 60
[2018-09-30] MEDS: Insulin Lispro (humaLOG) 100 Units/ml Inj SC SCH ×3 (07:59→17:42)
[2018-09-30] MEDS: Multivitamin With Minerals Tab PO SCH (09:39)
[2018-09-30] MEDS: Enoxaparin 40 mg Syringe SC SCH (09:40)
[2018-09-30] MEDS: Azithromycin 500 MG in Sodium Chloride 0.9% 250 ML IVPB SCH (09:42)
--- NOTE | 2018-09-30 11:07 | CP.PCM.PN ---
<Zohra Herrmann - Last Filed: 09/30/18 11:02> Subjective - Date & Time of Evaluation Date of Evaluation: 09/30/18 Time of Evaluation: 07:35 - Subjective Subjective: Pt seen with Dr. Feldman this am; no acute events overnight, pt appears in good spirits. Cough still present but improving, using incentive spirometer. Cough sounds improving; continues to receive antibiotics. Chest CT yest showed mucous plugging, bilateral bronchiectasis, infiltrate, as well as 11 mm pleural based nodule right lower lobe with nodular pleural thickening adjacent to it. Objective - Vital Signs/Intake and Output Vital Signs (last 24 hours): Temp Pulse Resp BP Pulse Ox 98.4 F 86 20 128/66 100 09/30/18 08:32 09/30/18 09:40 09/30/18 08:32 09/30/18 09:40 09/30/18 08:32 - Medications Medications: Current Medications Albuterol/Ipratropium (Duoneb 3 Mg/0.5 Mg (3 Ml) Ud) 3 ml INH RQ4 PRN PRN Reason: Shortness of Breath Amlodipine Besylate (Norvasc) 5 mg PO DAILY [facility] Last Admin: 09/30/18 09:40 Dose: 5 mg Clopidogrel Bisulfate (Plavix) 75 mg PO DAILY [facility] Last Admin: 09/30/18 09:40 Dose: 75 mg Dextrose (Dextrose 50% Inj) 0 ml IV STAT PRN; Protocol PRN Reason: Hypoglycemia Protocol Dextrose (Glutose 15) 0 gm PO ONCE PRN; Protocol PRN Reason: Hypoglycemia Protocol Enoxaparin Sodium (Lovenox) 40 mg SC DAILY [facility]; Protocol Last Admin: 09/30/18 09:40 Dose: 40 mg Famotidine (Pepcid) 20 mg PO BID [facility] Last Admin: 09/30/18 09:39 Dose: 20 mg Glucagon (Glucagen Diagnostic Kit) 0 mg IM STAT PRN; Protocol PRN Reason: Hypoglycemia Protocol Ceftriaxone Sodium 1 gm/ (Sodium Chloride) 100 mls @ 100 mls/hr IVPB DAILY [facility]; Protocol Last Admin: 09/30/18 09:41 Dose: 100 mls/hr Azithromycin 500 mg/ Sodium (Chloride) 250 mls @ 250 mls/hr IVPB DAILY [facility]; Protocol Last Admin: 09/30/18 09:42 Dose: 250 mls/hr Insulin Human Lispro (Humalog) 0 units SC ACTID [facility]; Protocol Last Admin: 09/30/18 07:59 Dose: Not Given Lactic Acid (Lac-Hydrin 12% Lotion (225 G)) 1 applic TOP TID [facility] Last Admin: 09/30/18 09:40 Dose: 1 applic Metformin HCl (Glucophage) 500 mg PO DAILY [facility] Last Admin: 09/30/18 09:50 Dose: 500 mg Metoprolol Tartrate (Lopressor) 50 mg PO Q12 [facility] Last Admin: 09/30/18 09:39 Dose: 50 mg Multivitamins/Minerals (Therapeutic-M Tab) 1 tab PO DAILY [facility] Last Admin: 09/30/18 09:39 Dose: 1 tab - Labs Labs: 09/30/18 04:45 09/30/18 04:45 PT 12.8 Seconds (9.8-13.1) 09/27/18 13:10 INR 1.1 09/27/18 13:10 APTT 32.8 Seconds (25.6-37.1) 09/27/18 13:10 - Constitutional Appears: No Acute Distress - Eye Exam Eye Exam: Normal appearance - ENT Exam ENT Exam: Mucous Membranes Moist - Respiratory Exam Respiratory Exam: Decreased Breath Sounds (equal bilaterally), NORMAL BREATHING PATTERN Additional comments: coarse crackles, but improving - Cardiovascular Exam Cardiovascular Exam: REGULAR RHYTHM, +S1, +S2 - GI/Abdominal Exam GI & Abdominal Exam: Soft. absent: Tenderness - Extremities Exam Extremities Exam: absent: Calf Tenderness - Neurological Exam Neurological Exam: Alert - Psychiatric Exam Psychiatric exam: Normal Mood - Skin Skin Exam: Dry, Warm Assessment and Plan - Assessment and Plan (Free Text) Assessment: 83 yo M with asthma, diabetes, hypertension, admitted for sepsis secondary to suspected bacterial community acquired pneumonia. Chest CT: Plan: - Continuous tele monitoring - Sepsis criteria met on admission (tachycardia, elevated WBC count, suspected source pneumonia seen on admission CXR); resolved. - WBC 17.1k-->11k-->12.9 today. Continue ceftriaxone and azithromycin, pulmonology consult; consider abx switch - Sputum cultures, blood cultures pending - Chest CT: Bilateral lower lobe cylindrical bronchiectasis, left greater than right. Mucous plugging in left lower lobe. 11 mm pleural-based nodule posterior aspect of the superior segment right lower lobe. Nodular pleural thickening is seen adjacent to this. Questionable right hilar lymphadenopathy. Further eval suggested in consideration of pulmonary neoplasm -- PULM consulted- Dr. Okeefe - EKG with T wave inversions, ? lateral ischemia - cardiology consult- Dr. Olivarse; no edema and probnp wnl. - Anemia -unknown etiology; iron studies normal and MCV wnl - Resume home meds for diabetes, asthma, resume metoprolol; hold lasix for now - Duonebs Q4hrs scheduled - Encourage incentive spirometry and PEP valve - Heart healthy/consistent carb diet - Lovenox SC <Feldman,Damian K - Last Filed: 09/30/18 14:19> Objective - Vital Signs/Intake and Output Vital Signs (last 24 hours): Temp Pulse Resp BP Pulse Ox 98 F 65 20 132/75 98 09/30/18 12:22 09/30/18 12:22 09/30/18 12:22 09/30/18 12:22 09/30/18 12:22 - Medications Medications: Current Medications Albuterol/Ipratropium (Duoneb 3 Mg/0.5 Mg (3 Ml) Ud) 3 ml INH RQ4 PRN PRN Reason: Shortness of Breath Amlodipine Besylate (Norvasc) 5 mg PO DAILY [facility] Last Admin: 09/30/18 09:40 Dose: 5 mg Clopidogrel Bisulfate (Plavix) 75 mg PO DAILY [facility] Last Admin: 09/30/18 09:40 Dose: 75 mg Dextrose (Dextrose 50% Inj) 0 ml IV STAT PRN; Protocol PRN Reason: Hypoglycemia Protocol Dextrose (Glutose 15) 0 gm PO ONCE PRN; Protocol PRN Reason: Hypoglycemia Protocol Enoxaparin Sodium (Lovenox) 40 mg SC DAILY [facility]; Protocol Last Admin: 09/30/18 09:40 Dose: 40 mg Famotidine (Pepcid) 20 mg PO BID [facility] Last Admin: 09/30/18 09:39 Dose: 20 mg Glucagon (Glucagen Diagnostic Kit) 0 mg IM STAT PRN; Protocol PRN Reason: Hypoglycemia Protocol Ceftriaxone Sodium 1 gm/ (Sodium Chloride) 100 mls @ 100 mls/hr IVPB DAILY [facility]; Protocol Last Admin: 09/30/18 09:41 Dose: 100 mls/hr Azithromycin 500 mg/ Sodium (Chloride) 250 mls @ 250 mls/hr IVPB DAILY [facility]; Protocol Last Admin: 09/30/18 09:42 Dose: 250 mls/hr Insulin Human Lispro (Humalog) 0 units SC ACTID [facility]; Protocol Last Admin: 09/30/18 07:59 Dose: Not Given Lactic Acid (Lac-Hydrin 12% Lotion (225 G)) 1 applic TOP TID [facility] Last Admin: 09/30/18 09:40 Dose: 1 applic Metformin HCl (Glucophage) 500 mg PO DAILY [facility] Last Admin: 09/30/18 09:50 Dose: 500 mg Metoprolol Tartrate (Lopressor) 50 mg PO Q12 [facility] Last Admin: 09/30/18 09:39 Dose: 50 mg Multivitamins/Minerals (Therapeutic-M Tab) 1 tab PO DAILY [facility] Last Admin: 09/30/18 09:39 Dose: 1 tab - Labs Labs: 09/30/18 04:45 09/30/18 04:45 PT 12.8 Seconds (9.8-13.1) 09/27/18 13:10 INR 1.1 09/27/18 13:10 APTT 32.8 Seconds (25.6-37.1) 09/27/18 13:10 Assessment and Plan - Assessment and Plan (Free Text) Assessment: Patient was personally seen and examined by me in rounds with residents. Available labs and diagnostic data reviewed. Case, Patient's condition and management plan discussed with residents in ro unds. Agree with resident's progress note. Plan: As ordered.
[2018-09-30] MEDS ORDERED: Sodium Chloride 3% for Inhalation 4 ML VIAL.NEB IH PRN (12:53)
--- NOTE | 2018-09-30 16:34 | CP.PCM.PN ---
Subjective - Date & Time of Evaluation Date of Evaluation: 09/30/18 Time of Evaluation: 16:33 - Subjective Subjective: CT showing pleural based thickening Objective - Vital Signs/Intake and Output Vital Signs (last 24 hours): Temp Pulse Resp BP Pulse Ox 98.7 F 88 16 137/64 95 09/30/18 16:00 09/30/18 16:00 09/30/18 16:00 09/30/18 16:00 09/30/18 16:00 - Medications Medications: Current Medications Albuterol/Ipratropium (Duoneb 3 Mg/0.5 Mg (3 Ml) Ud) 3 ml INH RQ4 PRN PRN Reason: Shortness of Breath Amlodipine Besylate (Norvasc) 5 mg PO DAILY [facility] Last Admin: 09/30/18 09:40 Dose: 5 mg Clopidogrel Bisulfate (Plavix) 75 mg PO DAILY [facility] Last Admin: 09/30/18 09:40 Dose: 75 mg Dextrose (Dextrose 50% Inj) 0 ml IV STAT PRN; Protocol PRN Reason: Hypoglycemia Protocol Dextrose (Glutose 15) 0 gm PO ONCE PRN; Protocol PRN Reason: Hypoglycemia Protocol Enoxaparin Sodium (Lovenox) 40 mg SC DAILY [facility]; Protocol Last Admin: 09/30/18 09:40 Dose: 40 mg Famotidine (Pepcid) 20 mg PO BID [facility] Last Admin: 09/30/18 09:39 Dose: 20 mg Glucagon (Glucagen Diagnostic Kit) 0 mg IM STAT PRN; Protocol PRN Reason: Hypoglycemia Protocol Ceftriaxone Sodium 1 gm/ (Sodium Chloride) 100 mls @ 100 mls/hr IVPB DAILY [facility]; Protocol Last Admin: 09/30/18 09:41 Dose: 100 mls/hr Azithromycin 500 mg/ Sodium (Chloride) 250 mls @ 250 mls/hr IVPB DAILY [facility]; Protocol Last Admin: 09/30/18 09:42 Dose: 250 mls/hr Insulin Human Lispro (Humalog) 0 units SC ACTID [facility]; Protocol Last Admin: 09/30/18 07:59 Dose: Not Given Lactic Acid (Lac-Hydrin 12% Lotion (225 G)) 1 applic TOP TID [facility] Last Admin: 09/30/18 09:40 Dose: 1 applic Losartan Potassium (Cozaar) 25 mg PO DAILY [facility] Metformin HCl (Glucophage) 500 mg PO DAILY [facility] Last Admin: 09/30/18 09:50 Dose: 500 mg Metoprolol Tartrate (Lopressor) 50 mg PO Q12 [facility] Last Admin: 09/30/18 09:39 Dose: 50 mg Multivitamins/Minerals (Therapeutic-M Tab) 1 tab PO DAILY [facility] Last Admin: 09/30/18 09:39 Dose: 1 tab - Labs Labs: 09/30/18 04:45 09/30/18 04:45 PT 12.8 Seconds (9.8-13.1) 09/27/18 13:10 INR 1.1 09/27/18 13:10 APTT 32.8 Seconds (25.6-37.1) 09/27/18 13:10 - Constitutional Appears: Well - Head Exam Head Exam: ATRAUMATIC, NORMAL INSPECTION, NORMOCEPHALIC - Eye Exam Eye Exam: EOMI, Normal appearance, PERRL Pupil Exam: NORMAL ACCOMODATION, PERRL - ENT Exam ENT Exam: Mucous Membranes Moist, Normal Exam - Neck Exam Neck Exam: Full ROM, Normal Inspection. absent: Lymphadenopathy - Respiratory Exam Respiratory Exam: Clear to Ausculation Bilateral, NORMAL BREATHING PATTERN - Cardiovascular Exam Cardiovascular Exam: REGULAR RHYTHM, +S1, +S2. absent: Murmur - GI/Abdominal Exam GI & Abdominal Exam: Soft, Normal Bowel Sounds. absent: Tenderness - Extremities Exam Extremities Exam: Full ROM, Normal Capillary Refill, Normal Inspection. absent: Joint Swelling, Pedal Edema - Back Exam Back Exam: NORMAL INSPECTION - Neurological Exam Neurological Exam: Alert, Awake, CN II-XII Intact, Normal Gait, Oriented x3 - Psychiatric Exam Psychiatric exam: Normal Affect, Normal Mood - Skin Skin Exam: Dry, Intact, Normal Color, Warm Assessment and Plan (1) Abnormal EKG Assessment & Plan: plan for stress testing on wednesday Status: Acute (2) HTN (hypertension) Assessment & Plan: cont norvasc, bb add losartan Status: Acute (3) Dyslipidemia Assessment & Plan: statins Status: Acute (4) Chest pain Status: Acute (5) Pneumonia Status: Acute
--- NOTE | 2018-10-01 00:34 | CON ---
DATE: 09/30/2018 HISTORY OF PRESENT ILLNESS: Mr. Callahan is an 83-year-old male who was referred for pulmonary evaluation because of cough productive of thick greenish sputum for the past several days prior to presentation. He recently came from [place] and had the above symptoms and was brought to the emergency room by the daughter. PAST MEDICAL HISTORY: He has a past medical history of asthma, diabetes mellitus, hypertension and hyperlipidemia. SOCIAL HISTORY: Denies drug or alcohol use. He is an ex-smoker. FAMILY HISTORY: Noncontributory. PHYSICAL EXAMINATION GENERAL: The patient is alert, somewhat oriented. VITAL SIGNS: On admission, blood pressure of 137/61 with a pulse of 104, respiratory rate 25, temperature maximum was 99 degrees Fahrenheit, O2 sat 94% on room air. SKIN: Shows fair turgor. HEENT: Pupils are equal and reactive to light and accommodation. JVP flat. Mouth shows fair hygiene. LUNGS: Scattered bilateral rales. HEART: Regular. ABDOMEN: Soft, nontender. No organomegaly. EXTREMITIES: Show no edema or cyanosis. CENTRAL NERVOUS SYSTEM: Grossly intact. LABORATORY DATA: Remarkable for WBC of 11.3, hemoglobin 9.4, platelet count 5,10,000. EKG, sinus rhythm with T-wave inversion in lateral leads. Venous blood gas: pH of 7.41, pO2 of 29, pCO2 of 39. Sodium 137, potassium 3.9, BUN of 12, creatinine 1.1, glucose of 135. Chest x-ray is remarkable for confluent airspace disease in the lower lobes, which could represent subsegmental atelectasis; however, superimposed pneumonia cannot be excluded. CT scan of the chest is remarkable for bilateral lower lobe cylindrical bronchiectasis, left greater than right, mucus plugging of left lower lobe and mild pulmonary infiltrate suspected in superior segment of left lower lobe, 11 cm pleural base nodule in the posterior aspect of the superior segment of the right lower lobe, nodular pleural thickening is seen adjacent to this, questionable right hilar lymphadenopathy. Evaluation with percutaneous biopsy or PET scan is suggested in consideration of possible pulmonary neoplasm. IMPRESSION: The patient with multiple medical problems, presented with cough, greenish sputum and low-grade fever and abnormal CAT scan of the chest. This clinical picture represents pneumonia. The patient also has pulmonary nodules. Neoplasm has been ruled out. PLAN: The plan at this point would be to continue IV antibiotic therapy as well as bronchodilators and oxygen. Repeat CAT scan of the chest once the patient's clinical condition improves or pneumonia resolves. If pulmonary nodularity persists, he may need bronchoscopy for airway surveillance and a lavage with possible biopsy. We will discuss case with the patient's family and medical doctor. Braulio Okeefe MD
[2018-10-01 06:54] LABS: HEMOGLOBIN 9.5 g/dL (12.0-18.0); MEAN CELL VOLUME 86.6 fl (80.0-94.0); MEAN CORPUSCULAR HEMOGLOBIN 29.4 pg (27.0-31.0); RBC 3.24 Mil/uL (4.40-5.90); RED CELL DISTRIBUTION WIDTH 14.5 % (11.5-14.5); WHITE BLOOD COUNT 12.7 K/uL (4.8-10.8)
[2018-10-01 06:58] LABS: ALB/GLOB RATIO 0.9 (1.0-2.1); ALBUMIN 3.4 g/dL (3.5-5.0); ALT/SGPT 32 U/L (21-72); AST/SGOT 51 U/L (17-59); BLOOD UREA NITROGEN 10 mg/dl (9-20); CALCIUM 9.4 mg/dL (8.4-10.2); GFR NON-AFRICAN AMERICAN > 60
[2018-10-01] MEDS: Insulin Lispro (humaLOG) 100 Units/ml Inj SC SCH ×3 (09:04→17:02)
[2018-10-01] MEDS: Enoxaparin 40 mg Syringe SC SCH (09:05)
[2018-10-01] MEDS: Multivitamin With Minerals Tab PO SCH (09:06)
[2018-10-01] MEDS: Azithromycin 500 MG in Sodium Chloride 0.9% 250 ML IVPB SCH (09:06)
--- NOTE | 2018-10-01 09:13 | PN ---
DATE: 10/01/2018 SUBJECTIVE: The patient seen and examined. Interim events noted. Consults noted and appreciated. Pulmonary intervention noted and appreciated. The patient remains in progressive care unit on telemetry monitoring. The patient feels okay. Feels a little better. Cough reduced. Shortness of breath improved. No new complaint of chest pain. PHYSICAL EXAMINATION: GENERAL: The patient is in no acute distress. VITAL SIGNS: Stable. HEART: S1 and S2 normal and regular. LUNGS: Good bilateral air exchange. ABDOMEN: Soft, nontender. EXTREMITIES: No edema. No calf swelling. No tenderness. No acute ischemia. WIND INSTRUMENT REPAIRER: Exam is essentially unchanged. DIAGNOSTIC DATA: Available diagnostic data reviewed. CAT scan as mentioned earlier reveals pneumonia and some nodules. Telemetry monitoring does not show significant arrhythmias. ASSESSMENT AND PLAN: Overall, the patient is slowly improving. The lung findings are improving. Plan as ordered. Case and plan discussed with the patient and the patient's at bedside. Damian Feldman MD
--- NOTE | 2018-10-01 10:55 | CP.PCM.PN ---
Subjective - Date & Time of Evaluation Date of Evaluation: 10/01/18 Time of Evaluation: 10:55 - Subjective Subjective: COUGH LESS SOB IMPROVED CASE DISCUSSED WITH PT AND DAUGHTER AT BEDSIDE Objective - Vital Signs/Intake and Output Vital Signs (last 24 hours): Temp Pulse Resp BP Pulse Ox 98.7 F 84 18 139/56 L 93 L 10/01/18 09:00 10/01/18 09:05 10/01/18 09:00 10/01/18 09:05 10/01/18 09:00 - Medications Medications: Current Medications Albuterol/Ipratropium (Duoneb 3 Mg/0.5 Mg (3 Ml) Ud) 3 ml INH RQ4 PRN PRN Reason: Shortness of Breath Amlodipine Besylate (Norvasc) 5 mg PO DAILY [facility] Last Admin: 10/01/18 09:05 Dose: 5 mg Clopidogrel Bisulfate (Plavix) 75 mg PO DAILY [facility] Last Admin: 10/01/18 09:06 Dose: 75 mg Dextrose (Dextrose 50% Inj) 0 ml IV STAT PRN; Protocol PRN Reason: Hypoglycemia Protocol Dextrose (Glutose 15) 0 gm PO ONCE PRN; Protocol PRN Reason: Hypoglycemia Protocol Enoxaparin Sodium (Lovenox) 40 mg SC DAILY [facility]; Protocol Last Admin: 10/01/18 09:05 Dose: 40 mg Famotidine (Pepcid) 20 mg PO BID [facility] Last Admin: 10/01/18 09:06 Dose: 20 mg Glucagon (Glucagen Diagnostic Kit) 0 mg IM STAT PRN; Protocol PRN Reason: Hypoglycemia Protocol Ceftriaxone Sodium 1 gm/ (Sodium Chloride) 100 mls @ 100 mls/hr IVPB DAILY [facility]; Protocol Last Admin: 10/01/18 09:03 Dose: 100 mls/hr Azithromycin 500 mg/ Sodium (Chloride) 250 mls @ 250 mls/hr IVPB DAILY [facility]; Protocol Last Admin: 10/01/18 09:06 Dose: 250 mls/hr Insulin Human Lispro (Humalog) 0 units SC ACTID [facility]; Protocol Last Admin: 10/01/18 09:04 Dose: Not Given Lactic Acid (Lac-Hydrin 12% Lotion (225 G)) 1 applic TOP TID [facility] Last Admin: 10/01/18 09:04 Dose: 1 applic Losartan Potassium (Cozaar) 25 mg PO DAILY [facility] Last Admin: 09/30/18 17:40 Dose: 25 mg Metformin HCl (Glucophage) 500 mg PO DAILY [facility] Last Admin: 10/01/18 09:12 Dose: 500 mg Metoprolol Tartrate (Lopressor) 50 mg PO Q12 [facility] Last Admin: 10/01/18 09:04 Dose: 50 mg Multivitamins/Minerals (Therapeutic-M Tab) 1 tab PO DAILY [facility] Last Admin: 10/01/18 09:06 Dose: 1 tab - Labs Labs: 10/01/18 05:42 10/01/18 05:42 PT 12.8 Seconds (9.8-13.1) 09/27/18 13:10 INR 1.1 09/27/18 13:10 APTT 32.8 Seconds (25.6-37.1) 09/27/18 13:10 - Constitutional Appears: No Acute Distress - Head Exam Head Exam: ATRAUMATIC, NORMAL INSPECTION, NORMOCEPHALIC - Eye Exam Eye Exam: EOMI, Normal appearance, PERRL Pupil Exam: NORMAL ACCOMODATION, PERRL - ENT Exam ENT Exam: Mucous Membranes Moist, Normal Exam - Neck Exam Neck Exam: Full ROM, Normal Inspection. absent: Lymphadenopathy - Respiratory Exam Respiratory Exam: Rales, NORMAL BREATHING PATTERN - Cardiovascular Exam Cardiovascular Exam: REGULAR RHYTHM, +S1, +S2. absent: Murmur - GI/Abdominal Exam GI & Abdominal Exam: Soft, Normal Bowel Sounds. absent: Tenderness - Rectal Exam Rectal Exam: NORMAL INSPECTION - Extremities Exam Extremities Exam: Full ROM, Normal Capillary Refill, Normal Inspection. absent: Joint Swelling, Pedal Edema - Back Exam Back Exam: NORMAL INSPECTION - Neurological Exam Neurological Exam: Alert, Awake, CN II-XII Intact, Normal Gait, Oriented x3 - Psychiatric Exam Psychiatric exam: Normal Affect, Normal Mood - Skin Skin Exam: Dry, Intact, Normal Color, Warm Assessment and Plan - Assessment and Plan (Free Text) Assessment: PNEUMONIA PULMONARY NODULES Plan: CONTINUE CURRENT RX REPEAT CT SCAN OF CHEST IN AM MAY NEED BROCHIAL LAVAGE IF PULMONARY FINDINGS WORSEN/PERSIST
[2018-10-02 06:34] LABS: HEMOGLOBIN 10.4 g/dL (12.0-18.0); MEAN CELL VOLUME 87.2 fl (80.0-94.0); MEAN CORPUSCULAR HEMOGLOBIN 28.6 pg (27.0-31.0); MEAN CORPUSCULAR HGB CONC 32.8 g/dL (33.0-37.0); RBC 3.62 Mil/uL (4.40-5.90); RED CELL DISTRIBUTION WIDTH 14.5 % (11.5-14.5); WHITE BLOOD COUNT 13.8 K/uL (4.8-10.8)
[2018-10-02 06:50] LABS: ALB/GLOB RATIO 0.9 (1.0-2.1); ALBUMIN 3.7 g/dL (3.5-5.0); ALT/SGPT 34 U/L (21-72); AST/SGOT 56 U/L (17-59); BLOOD UREA NITROGEN 10 mg/dl (9-20); CALCIUM 9.7 mg/dL (8.4-10.2); GFR NON-AFRICAN AMERICAN > 60
[2018-10-02] MEDS: Multivitamin With Minerals Tab PO SCH (09:15)
[2018-10-02] MEDS: Insulin Lispro (humaLOG) 100 Units/ml Inj SC SCH ×3 (09:15→16:44)
[2018-10-02] MEDS: Enoxaparin 40 mg Syringe SC SCH (09:17)
[2018-10-02] MEDS: Azithromycin 500 MG in Sodium Chloride 0.9% 250 ML IVPB SCH (09:20)
--- NOTE | 2018-10-02 11:37 | CP.PCM.PN ---
Subjective - Date & Time of Evaluation Date of Evaluation: 10/02/18 Time of Evaluation: 11:37 - Subjective Subjective: continues to improve clinically family at bedside and case was discussed with them Objective - Vital Signs/Intake and Output Vital Signs (last 24 hours): Temp Pulse Resp BP Pulse Ox 98.4 F 88 18 146/63 98 10/02/18 08:00 10/02/18 09:17 10/02/18 08:00 10/02/18 09:17 10/02/18 08:00 - Medications Medications: Current Medications Albuterol/Ipratropium (Duoneb 3 Mg/0.5 Mg (3 Ml) Ud) 3 ml INH RQ4 PRN PRN Reason: Shortness of Breath Last Admin: 10/01/18 21:52 Dose: 3 ml Amlodipine Besylate (Norvasc) 5 mg PO DAILY [facility] Last Admin: 10/02/18 09:17 Dose: 5 mg Clopidogrel Bisulfate (Plavix) 75 mg PO DAILY [facility] Last Admin: 10/02/18 09:16 Dose: 75 mg Dextrose (Dextrose 50% Inj) 0 ml IV STAT PRN; Protocol PRN Reason: Hypoglycemia Protocol Dextrose (Glutose 15) 0 gm PO ONCE PR[facility]; Protocol PRN Reason: Hypoglycemia Protocol Enoxaparin Sodium (Lovenox) 40 mg SC DAILY [facility]; Protocol Last Admin: 10/02/18 09:17 Dose: 40 mg Famotidine (Pepcid) 20 mg PO BID [facility] Last Admin: 10/02/18 09:15 Dose: 20 mg Glucagon (Glucagen Diagnostic Kit) 0 mg IM STAT PRN; Protocol PRN Reason: Hypoglycemia Protocol Ceftriaxone Sodium 1 gm/ (Sodium Chloride) 100 mls @ 100 mls/hr IVPB DAILY [facility]; Protocol Last Admin: 10/02/18 09:17 Dose: 100 mls/hr Azithromycin 500 mg/ Sodium (Chloride) 250 mls @ 250 mls/hr IVPB DAILY [facility]; Protocol Last Admin: 10/02/18 09:20 Dose: 250 mls/hr Insulin Human Lispro (Humalog) 0 units SC ACTID [facility]; Protocol Last Admin: 10/02/18 09:15 Dose: Not Given Lactic Acid (Lac-Hydrin 12% Lotion (225 G)) 1 applic TOP TID [facility] Last Admin: 10/02/18 09:23 Dose: 1 applic Losartan Potassium (Cozaar) 25 mg PO DAILY [facility] Last Admin: 10/02/18 09:14 Dose: 25 mg Metformin HCl (Glucophage) 500 mg PO DAILY [facility] Last Admin: 10/02/18 09:14 Dose: 500 mg Metoprolol Tartrate (Lopressor) 50 mg PO Q12 [facility] Last Admin: 10/02/18 09:16 Dose: 50 mg Multivitamins/Minerals (Therapeutic-M Tab) 1 tab PO DAILY [facility] Last Admin: 10/02/18 09:15 Dose: 1 tab - Labs Labs: 10/02/18 05:33 10/02/18 05:33 PT 12.8 Seconds (9.8-13.1) 09/27/18 13:10 INR 1.1 09/27/18 13:10 APTT 32.8 Seconds (25.6-37.1) 09/27/18 13:10 - Constitutional Appears: No Acute Distress - Head Exam Head Exam: ATRAUMATIC, NORMAL INSPECTION, NORMOCEPHALIC - Eye Exam Eye Exam: EOMI, Normal appearance, PERRL Pupil Exam: NORMAL ACCOMODATION, PERRL - ENT Exam ENT Exam: Mucous Membranes Moist, Normal Exam - Neck Exam Neck Exam: Full ROM, Normal Inspection. absent: Lymphadenopathy - Respiratory Exam Respiratory Exam: Decreased Breath Sounds, Prolonged Expiratory Phase, Rales, NORMAL BREATHING PATTERN - Cardiovascular Exam Cardiovascular Exam: REGULAR RHYTHM, +S1, +S2. absent: Murmur - GI/Abdominal Exam GI & Abdominal Exam: Soft, Normal Bowel Sounds. absent: Tenderness - Rectal Exam Rectal Exam: NORMAL INSPECTION - Exam Exam: NORMAL INSPECTION - Extremities Exam Extremities Exam: Full ROM, Normal Capillary Refill, Normal Inspection. absent: Joint Swelling, Pedal Edema - Back Exam Back Exam: NORMAL INSPECTION - Neurological Exam Neurological Exam: Alert, Awake, CN II-XII Intact, Normal Gait, Oriented x3 - Psychiatric Exam Psychiatric exam: Normal Affect, Normal Mood - Skin Skin Exam: Dry, Intact, Normal Color, Warm Assessment and Plan - Assessment and Plan (Free Text) Assessment: pneumonia pulmonary nodules Plan: continue present rx will review ct scan results to determine need for bronchoscopy
--- NOTE | 2018-10-02 16:37 | CT ---
Date of service: 10/02/2018 PROCEDURE: CT Chest without contrast HISTORY: PULMONARY NODULES/PNEUMONIA COMPARISON: TECHNIQUE: Contiguous axial images were obtained through the chest without intravenous contrast enhancement. Sagittal and coronal reconstructions were performed. Radiation dose: Total exam DLP = 303.35 mGy-cm. This CT exam was performed using one or more of the following dose reduction techniques: Automated exposure control, adjustment of the mA and/or kV according to patient size, and/or use of iterative reconstruction technique. FINDINGS: LUNGS: There are pulmonary infiltrates within both lower lobes as well as the middle lobe. Mild cylindrical bronchiectasis in both lower lobes, left greater than right. Apparent mucous plugging both lower lobes. There is nodular pleural thickening seen in the superior segment right lower lobe.. Previously noted pleural-based nodule, 11 mm in diameter, along the posterior aspect of the superior segment, right lower lobe not well delineated due to patchy infiltrates.. No change pleural adjacent pleural thickening. Please note that prior report advised further evaluation advised with percutaneous biopsy or PET-CT to exclude neoplasm. There is a calcified granuloma in the right upper lobe, anterior segment.. MEDIASTINUM: Heart appears enlarged. No significant pericardial effusion. Ascending thoracic aorta measures approximately 3.6 cm and descending thoracic aorta measures approximately 3.1 cm. Mild aortic atherosclerotic calcification. Pulmonary trunk measures approximately 2 right hilar and right-sided mediastinal lymph nodes; rule out prior exposure to granulomatous disease process..7 cm. Questionable of bilateral hilar adenopathy. Follow-up CT scan of the chest with contrast is suggested PLEURA: No pleural fluid. No pneumothorax. BONES: Mild multilevel degenerative spondylosis of the thoracic spine. UPPER ABDOMEN: Grossly unremarkable. OTHER FINDINGS: Changes of bilateral gynecomastia again noted IMPRESSION: There are patchy infiltrates seen in both lower lobes as well as right middle lobe. Small nodule posterior aspect superior segment right lower lobe and nodular pleural thickening less well visualized due to infiltrates. Note that prior report advised PET-CT scan or biopsy to exclude neoplasm in this location. Findings suggest bilateral hilar adenopathy. Recommend follow-up CT scan of the chest with contrast.
[2018-10-03 05:24] LABS: HEMOGLOBIN 9.7 g/dL (12.0-18.0); MEAN CELL VOLUME 87.3 fl (80.0-94.0); MEAN CORPUSCULAR HEMOGLOBIN 28.8 pg (27.0-31.0); RBC 3.36 Mil/uL (4.40-5.90); RED CELL DISTRIBUTION WIDTH 14.3 % (11.5-14.5); WHITE BLOOD COUNT 13.7 K/uL (4.8-10.8)
[2018-10-03 05:42] LABS: ALB/GLOB RATIO 0.9 (1.0-2.1); ALBUMIN 3.4 g/dL (3.5-5.0); ALT/SGPT 35 U/L (21-72); AST/SGOT 44 U/L (17-59); BLOOD UREA NITROGEN 14 mg/dl (9-20); CALCIUM 9.2 mg/dL (8.4-10.2); GFR NON-AFRICAN AMERICAN 52
--- NOTE | 2018-10-03 07:21 | PN ---
DATE: 10/02/2018 INCOMPLETE DICTATION SUBJECTIVE: The patient seen and examined. Interim events noted. Consults noted and appreciated. Pulmonary intervention noted and appreciated. The patient remains in progressive care unit on telemetry monitoring, sleeping, arousable, feels better, cough improved. No shortness of breath. No chest pain. PHYSICAL EXAMINATION: GENERAL: The patient is in no acute distress. VITAL SIGNS: Stable. HEART: S1, S2 normal and regular. LUNGS: Good bilateral air exchange. ABDOMEN: Soft, nontender. No organomegaly. No fluid. Bowel sounds are present and normal. ASSESSMENT AND PLAN: Overall, the patient is clinically getting better. Plan as ordered. Case and plan discussed with the patient and the patient's son at bedside. Damian Feldman MD
[2018-10-03 07:49] VITALS: RESP 20
[2018-10-03] MEDS: Insulin Lispro (humaLOG) 100 Units/ml Inj SC SCH ×2 (09:17→12:31)
[2018-10-03] MEDS: Multivitamin With Minerals Tab PO SCH (09:17)
[2018-10-03] MEDS: Enoxaparin 40 mg Syringe SC SCH (09:18)
[2018-10-03] MEDS: Azithromycin 500 MG in Sodium Chloride 0.9% 250 ML IVPB SCH (09:19)
--- NOTE | 2018-10-03 11:27 | PN ---
DATE: 10/03/2018 SUBJECTIVE: The patient seen and examined. Interim events noted. The patient remains in regular medical floor, progressive care unit with telemetry monitoring. The patient denies any complaint. Cough is much improved. Shortness of breath much improved. The patient has generalized weakness. No specific issue reported by nursing staff or family member at bedside. PHYSICAL EXAMINATION: GENERAL: The patient is in no acute distress. VITAL SIGNS: Stable. HEART: S1 and S2, normal and regular. LUNGS: Good bilateral air exchange. Still has great deal of crepitation mainly on left lower side which partially clears with coughing. ABDOMEN: Soft, nontender. No organomegaly. No fluid. Bowel sounds are plus and normal. EXTREMITIES: No edema. No calf swelling. No tenderness. No acute ischemia. CENTRAL NERVOUS SYSTEM: Essentially unchanged. DIAGNOSTIC DATA: Available diagnostic data reviewed. CAT scan is essentially same. Telemetry monitoring does not show significant arrhythmias. ASSESSMENT AND PLAN: Overall, the patient is clinically stable and improving. Plan as ordered. Damian Feldman MD
--- NOTE | 2018-10-03 11:32 | CP.PCM.PN ---
Subjective - Date & Time of Evaluation Date of Evaluation: 10/03/18 Time of Evaluation: 11:32 - Subjective Subjective: feels better no sob cough improved Objective - Vital Signs/Intake and Output Vital Signs (last 24 hours): Temp Pulse Resp BP Pulse Ox 98.0 F 87 20 137/67 95 10/03/18 07:48 10/03/18 09:17 10/03/18 07:48 10/03/18 09:17 10/03/18 07:48 - Medications Medications: Current Medications Albuterol/Ipratropium (Duoneb 3 Mg/0.5 Mg (3 Ml) Ud) 3 ml INH RQ4 PRN PRN Reason: Shortness of Breath Last Admin: 10/01/18 21:52 Dose: 3 ml Amlodipine Besylate (Norvasc) 5 mg PO DAILY [facility] Last Admin: 10/03/18 09:17 Dose: 5 mg Clopidogrel Bisulfate (Plavix) 75 mg PO DAILY [facility] Last Admin: 10/03/18 09:17 Dose: 75 mg Dextrose (Dextrose 50% Inj) 0 ml IV STAT PRN; Protocol PRN Reason: Hypoglycemia Protocol Dextrose (Glutose 15) 0 gm PO ONCE PRN; Protocol PRN Reason: Hypoglycemia Protocol Diphenhydramine HCl (Benadryl) 25 mg PO Q6 PRN PRN Reason: Itching / Pruritus Last Admin: 10/02/18 12:14 Dose: 25 mg Enoxaparin Sodium (Lovenox) 40 mg SC DAILY [facility]; Protocol Last Admin: 10/03/18 09:18 Dose: 40 mg Famotidine (Pepcid) 20 mg PO BID [facility] Last Admin: 10/03/18 09:18 Dose: 20 mg Glucagon (Glucagen Diagnostic Kit) 0 mg IM STAT PRN; Protocol PRN Reason: Hypoglycemia Protocol Ceftriaxone Sodium 1 gm/ (Sodium Chloride) 100 mls @ 100 mls/hr IVPB DAILY [facility]; Protocol Last Admin: 10/03/18 09:19 Dose: 100 mls/hr Azithromycin 500 mg/ Sodium (Chloride) 250 mls @ 250 mls/hr IVPB DAILY [facility]; Protocol Last Admin: 10/03/18 09:19 Dose: 250 mls/hr Insulin Human Lispro (Humalog) 0 units SC ACTID [facility]; Protocol Last Admin: 10/03/18 09:17 Dose: Not Given Lactic Acid (Lac-Hydrin 12% Lotion (225 G)) 1 applic TOP TID [facility] Last Admin: 10/03/18 09:19 Dose: 1 applic Losartan Potassium (Cozaar) 25 mg PO DAILY [facility] Last Admin: 10/02/18 09:14 Dose: 25 mg Metformin HCl (Glucophage) 500 mg PO DAILY [facility] Last Admin: 10/03/18 09:17 Dose: 500 mg Metoprolol Tartrate (Lopressor) 50 mg PO Q12 [facility] Last Admin: 10/03/18 09:16 Dose: 50 mg Multivitamins/Minerals (Therapeutic-M Tab) 1 tab PO DAILY [facility] Last Admin: 10/03/18 09:17 Dose: 1 tab - Labs Labs: 10/03/18 04:30 10/03/18 04:30 PT 12.8 Seconds (9.8-13.1) 09/27/18 13:10 INR 1.1 09/27/18 13:10 APTT 32.8 Seconds (25.6-37.1) 09/27/18 13:10 - Constitutional Appears: No Acute Distress - Head Exam Head Exam: ATRAUMATIC, NORMAL INSPECTION, NORMOCEPHALIC - Eye Exam Eye Exam: EOMI, Normal appearance, PERRL Pupil Exam: NORMAL ACCOMODATION, PERRL - ENT Exam ENT Exam: Mucous Membranes Moist, Normal Exam - Neck Exam Neck Exam: Full ROM, Normal Inspection. absent: Lymphadenopathy - Respiratory Exam Respiratory Exam: Prolonged Expiratory Phase, Rales, NORMAL BREATHING PATTERN - Cardiovascular Exam Cardiovascular Exam: REGULAR RHYTHM, +S1, +S2. absent: Murmur - GI/Abdominal Exam GI & Abdominal Exam: Soft, Normal Bowel Sounds. absent: Tenderness - Rectal Exam Rectal Exam: NORMAL INSPECTION - Extremities Exam Extremities Exam: Full ROM, Normal Capillary Refill, Normal Inspection. absent: Joint Swelling, Pedal Edema - Back Exam Back Exam: NORMAL INSPECTION - Neurological Exam Neurological Exam: Alert, Awake, CN II-XII Intact, Normal Gait, Oriented x3 - Psychiatric Exam Psychiatric exam: Normal Affect, Normal Mood - Skin Skin Exam: Dry, Intact, Normal Color, Warm Assessment and Plan - Assessment and Plan (Free Text) Assessment: pneumonia-improved pulmonary nodules less prominent and small Plan: ok to d/c on antibiotic rx repeat ct scan of chest in 3 months to re-evaluate pulmonary nodules and pneumonia consider bronchoscopic eval of airways if nodules enlarge or pneumonia worsensd case discussed with pt and family
[2018-10-03 11:45] VITALS: BP 144/67; PULSE 85; TEMP 98.3; O2SAT 96
== END 2018-10-03 15:15 | DRG 871 ==
LOC: H.ER 12:28 → H.ERHOLD 15:19 → H.TEL 18:08
PROVIDERS: ADMIT Internal Medicine; ATTEND Internal Medicine
PROC: 3E0234Z Introduction of Serum, Toxoid and Vaccine into Muscle, Percutaneous Approach (ICD-10-PCS; principal; 2018-09-28)
DX: A41.9 Sepsis, unspecified organism (principal); J15.9 Unspecified bacterial pneumonia; J47.0 Bronchiectasis with acute lower respiratory infection; R91.8 Other nonspecific abnormal finding of lung field; J45.909 Unspecified asthma, uncomplicated; E11.9 Type 2 diabetes mellitus without complications; I10 Essential (primary) hypertension; E78.00 Pure hypercholesterolemia, unspecified; E78.5 Hyperlipidemia, unspecified; R94.31 Abnormal electrocardiogram [ECG] [EKG]; M19.90 Unspecified osteoarthritis, unspecified site; Z23 Encounter for immunization; Z87.891 Personal history of nicotine dependence; Z89.021 Acquired absence of right finger(s)